=== PATIENT | male | born 1985 | race African-American/Black ===

== ENCOUNTER 2023-08-27 15:52 | Emergency (ER) | payer SELFPAY ==
[~2023-08-27] VITALS: Ht 180.3 cm; Wt 100.0 kg
[2023-08-27 15:57] VITALS: O2SAT 99
[2023-08-27] MEDS ORDERED: LIDOCAINE HCL/EPINEPHRINE 1%-EPI 1:100,000 20 ML VIAL INFIL ONE ×2 (16:00→16:45)
[2023-08-27] MEDS ORDERED: CEFAZOLIN 1000MG PREMIX 50 ML IV ONE (16:00)
[2023-08-27] MEDS ORDERED: TETANUS, DIPHTHERIA, PERTUSSIS VAC/PF 0.5ML (>10YR OLD) IM ONE (16:00)
[2023-08-27] MEDS ORDERED: SODIUM CHLORIDE 0.9% 1,000 ML IV ONE (16:00)
[2023-08-27] MEDS ORDERED: FENTANYL CITRATE/PF 50MCG/ML 2ML VIAL IV ONE ×2 (16:00→17:15)
[2023-08-27 16:11] LABS: HEMATOCRIT. 44.9 % (42.0-52.0); HEMOGLOBIN. 15.2 g/dL (14.0-18.0); MEAN CORPUSCULAR HEMOGLOBIN 34.4 pg (28.0-32.0); MEAN CORPUSCULAR HGB CONC 33.9 g/dL (31.0-37.0); MEAN CORPUSCULAR VOLUME 101.6 fL (80.0-94.0); PLATELET 386 x1000/uL (130-400); RED BLOOD CELL COUNT 4.42 mill/uL (4.7-6.1); WHITE BLOOD COUNT 9.9 x1000/uL (4.5-11.0)
[2023-08-27 16:12] LABS: DIFFERENTIAL COMMENT 1
[2023-08-27 16:19] LABS: CHLORIDE 107 mEq/L (98-107); INDEX HEMOLYSI 2 (1-3); INDEX ICTERIC 1 (1-4); INDEX LIPEMIC 1 (1-3); POTASSIUM 3.5 mEq/L (3.5-5.1); SODIUM 142 mEq/L (136-145)
[2023-08-27 16:29] LABS: ALANINE AMINOTRANSFERASE 23 IU/L (13-61); ALBUMIN 4.2 g/dL (3.4-5.0); ASPARTATE AMINOTRANSFERASE 20 IU/L (15-37); BILIRUBIN TOTAL 1.1 mg/dL (0.1-1.0); CALCIUM 9.1 mg/dL (8.5-10.1); CARBON DIOXIDE 22 mEq/L (21-32); CREATININE 0.9 mg/dL (0.6-1.3); GLUCOSE 124 mg/dL (70-105); PROTEIN TOTAL 7.9 g/dL (6.0-8.3); UREA NITROGEN BLOOD 12 mg/dL (7-21)
[2023-08-27] MEDS ORDERED: LIDOCAINE HCL/EPINEPHRINE 1%-EPI 1:100,000 20 ML VIAL INFIL NR (16:52)
[2023-08-27 17:08] LABS: PLATELET ESTIMATE NORMAL
[2023-08-27 18:46] VITALS: BP 118/85; PULSE 75; RESP 20; TEMP 98.5
[2023-08-27] MEDS ORDERED: CEPH500T MT (19:18)
[2023-08-27] MEDS ORDERED: NAPR-1129 MT (19:19)
== END 2023-08-27 17:00 | disposition home or self-care (01) ==
LOC: ER 15:52
DX: S71.131A Puncture wound without foreign body, right thigh, initial encounter (principal); S81.832A Puncture wound without foreign body, left lower leg, initial encounter; X95.8XXA Assault by other firearm discharge, initial encounter; Y93.89 Activity, other specified; Y92.89 Other specified places as the place of occurrence of the external cause; Y99.8 Other external cause status
CPT/HCPCS: 80053; 85025; 36415; 73551; 73590; 72191; 73706; 90715; 12004; 90471; 96365; 96375; 96376; 99291; J3010; Q9967; J0690; J3490; J7030; Z7610